=== PATIENT | female | born 1950 | race Caucasian/White ===

== ENCOUNTER → 2022-09-29 12:23 | Outpatient (CLI) | payer MEDICARE, OTHER, SELFPAY ==
--- NOTE | 2022-09-29 12:51 | DI.MRI.S_ITS ---
PROCEDURE: MR ANKLE LT WO/W CON INDICATIONS: LEFT ANKLE PAIN, mass TECHNIQUE: Noncontrast sagittal T1 spin echo and T2 fast spin echo with fat saturation, axial proton density fast spin echo and T2 fast spin echo with fat saturation, axial T1 spin echo with fat saturation, coronal T1 spin echo and T2 fast spin echo with fat saturation through the ankle/hindfoot. Post-contrast axial, coronal, and sagittal T1 spin echo with fat saturation through the ankle/hindfoot. COMPARISON: [facility] [place], CR, XR FOOT 3+ VIEWS LEFT, 09/17/2022, 12:11. FINDINGS: Image quality: Excellent. Bones and joints: Fiducial marker is placed over lateral aspect of midfoot at the level of 5th metatarsal base. [id number] midfoot and hindfoot joint osteoarthritic changes are seen with joint space narrowing, subchondral sclerosis and small marginal osteophyte formation more notably involving tibiotalar joint and calcaneocuboid joint. No fracture or dislocation. No suspicious bony lesion. No suspicious osseous enhancement. No hindfoot coalitions. No osteochondral injuries of the talar dome. No pathologic joint effusions. Medial structures: The posterior tibialis, flexor digitorum longus, and flexor hallucis longus tendons are intact. The posterior tibial neurovascular bundle appears normal within the tarsal tunnel, without extrinsic mass effect. The deep layer (anterior and posterior tibiotalar ligaments) and superficial layer (tibionavicular, tibiospring, and tibiocalcaneal ligaments) of the deltoid ligament appear normal. The spring ligament components (superomedial calcaneonavicular, medioplantar oblique calcaneonavicular, and inferoplantar longitudinal ligaments) are intact. Lateral structures: The anterior talofibular, calcaneofibular, and posterior talofibular ligaments appear mildly thickened. More superiorly, the anterior and posterior tibiofibular ligaments appear intact, as is the intermalleolar ligament. The tibiofibular syndesmosis is normal in width at 2 mm or less. The peroneus longus and brevis tendons demonstrate normal location and morphology. Adjacent bony peroneal tubercle and retrotrochlear prominence are normal in size. The sinus tarsi demonstrates normal fatty signal, without edema, fibrosis, or cyst formation. Visualized sinus tarsi components (cervical ligament, interosseous talocalcaneal ligament, roots of the inferior extensor retinaculum) appear normal. The calcaneonavicular and calcaneocuboid components of the bifurcate ligament appear intact. The dorsal calcaneocuboid ligament appears intact. There is a lobulated T2 hyperintense structure within soft tissue along lateral aspect of 5th metatarsal base measures up to 1.5 x 0.8 x 1.4 cm in size series 7, image 14 and series 4 image 39. After IV contrast infusion, mild peripheral enhancement is seen around this structure. No gross internal enhancement is seen. Anterior structures: The tibialis anterior, extensor hallucis longus, and extensor digitorum longus tendons appear intact. The dorsal talonavicular ligament appears intact. Posterior and plantar structures: Achilles tendon is intact. Medial and lateral bands of the plantar fascia are mildly thickened. No abductor digiti quinti muscle atrophy to suggest Walls neuropathy. IMPRESSION: 1. Lobulated T2 hyperintense and T1 hypointense structure in soft tissue along lateral aspect of 5th metatarsal base and measures up to 1.5 x 0.8 x 1.4 cm in size. Mild peripheral enhancement is seen. Finding may represent a ganglion cyst possibly associated with 5th TMT joint or adjacent peroneus brevis tendon insertion. No gross enhancing soft tissue mass. 2. No abnormal intraosseous enhancement. Osteoarthritic changes throughout midfoot and hindfoot as above. No suspicious bony lesions. No fracture or dislocation. 3. Low-grade lateral ankle ligament sprain. 4. Thickened plantar fascia at its calcaneal insertion suggestive of low-grade plantar fasciitis. Dictated by: Sanjeev Mitchell M.D. on 09/29/2022 at 21:52 Approved by: Sanjeev Mitchell M.D. on 09/29/2022 at 21:58
== END ==
PROVIDERS: PCP Internal Medicine; Referring Provider Podiatrist; Visit Provider Podiatrist
DX: S93.492A Sprain of other ligament of left ankle, initial encounter (principal); M79.672 Pain in left foot
CPT/HCPCS: 73723